=== PATIENT | female | born 1980 | race Caucasian/White ===

== ENCOUNTER 2016-07-23 08:55 | Emergency (ER) | payer BC ==
[~2016-07-23] VITALS: Wt 62.0 kg
[~2016-07-23 08:55] MED LIST: ALB.5NB20 IH; ALBU18HF IH; ALBU8.5H3 INH; AZIT250T6 PO; IBUP-1542 PO; PRED20TA PO; UDROBDM PO; ZOF8 PO
--- NOTE | 2016-07-23 10:25 | ERD ---
ER Documentation Chief Complaint Date/Time DATE: 07/23/16 TIME: 10:25 Chief Complaint SYNCOPAL EPISODE 2 DAYS AND TODAY WITH NO TRAUMA. NO NEURO DEF HPI Patient is a 35-year-old female with no medical problems who presents with passing out. She said that in 2014 she had an accident and then has had a headache since then. She feels dizzy. She passed out on Saturday and was by herself soon as she does not know how long she was out. She passed out again today and it lasted 2-3 minutes as her boyfriend was with her. She did have an MRI of her brain on June 19, 2016 which showed an arachnoid cyst but nothing otherwise. ROS All systems reviewed and are negative except as per history of present illness. Medications Home Meds Reported Medications Albuterol Sulfate* (Proair HFA*) 8.5 Gm Hfa.aer.ad, 2 PUFF INH Q4H Y for WHEEZING AND SOB, INH 03/22/14 Discontinued Reported Medications Albuterol Sulfate* (Albuterol Sulfate* Neb) 20 Ml Nebu, 20 ML IH PRN 09/11/12 Discontinued Scripts Guaifenesin-Dextromethorphan* (Robitussin* DM) 100MG/10MG/5ML Syrup, 10 ML PO Q6H Y for COUGH, #240 ML 0 Refills Prov:SHAHBAZ POMPA PA-C 04/07/15 Ibuprofen* (Ibuprofen*) 600 Mg Tablet, 600 MG PO Q6H Y for PAIN AND OR ELEVATED TEMP, #30 Prov:RANDY OMALLEY MD 10/25/14 Albuterol Sulfate* (Ventolin HFA*) 18 Gm Hfa.aer.ad, 2 PUFF IH Q4H Y for WHEEZING AND RESP DISTRESS for 7 Days, EA Prov:RANDY OMALLEY MD 10/25/14 Azithromycin* (Azithromycin*) 250 Mg Tablet, 250 MG PO . DIRECTED, #6 TAB TAKE 500 MG (2 TABS) THE FIRST DAY THEN 250 MG (1 TAB) DAYS 2-5 Prov:RANDY OMALLEY MD 10/25/14 Prednisone* (Prednisone*) 20 Mg Tab, 40 MG PO DAILY for 4 Days, TAB start 10/26 Prov:RANDY OMALLEY MD 10/25/14 Ondansetron Hcl* (Zofran* ODT) 8 mg -ODT Tab.disper, 8 MG PO Q6 Y for NAUSEA AND /OR VOMITING, #10 TAB Prov:RANDY OMALLEY MD 10/25/14 Allergies Allergies: Coded Allergies: Shellfish (Verified Allergy, Mild, RASH, 03/22/14) Uncoded Allergies: NONE (Allergy, Unknown, 03/22/14) PMhx/Soc History of Surgery: Yes ( , RIGHT SHOULDER) Anesthesia Reaction: No Hx Neurological Disorder: No Hx Respiratory Disorders: Yes (ASTHMA) Hx Cardiac Disorders: No Hx Psychiatric Problems: No Hx Miscellaneous Medical Probl: No Hx Alcohol Use: No Hx Substance Use: No Hx Tobacco Use: No Smoking Status: Never smoker FmHx Family History: No diabetes Physical Exam Vitals Vital Signs Date Time Temp Pulse Resp B/P Pulse Ox O2 Delivery O2 Flow Rate FiO2 07/23/16 10:44 97.8 78 18 137/95 98 Room Air 07/23/16 09:02 98.8 81 20 140/81 98 Physical Exam Const: No acute distress Head: Atraumatic Eyes: Normal Conjunctiva ENT: Normal External Ears, Nose and Mouth. Neck: Full range of motion..~ No meningismus. Resp: Clear to auscultation bilaterally Cardio: Regular rate and rhythm, no murmurs Abd: Soft, non tender, non distended. Normal bowel sounds Skin: No petechiae or rashes Back: No midline or flank tenderness Ext: No cyanosis, or edema Neur: Awake and alert Psych: Normal Mood and Affect Results 24 hrs Laboratory Tests Test 07/23/16 09:38 Bedside Glucose 92mg/dL [facility] EKG read by me: Rate/Rhythm: Regular rate and rhythm at a rate of 75 Intervals: Normal Impression: No evidence of ischemia or arrhythmia Accu-Chek is normal. Urine test is negative. Patient is a 35-year-old female with no medical problems who presents with syncope. Her EKG, Accu-Chek, and urine tests are negative. At this point I believe outpatient management is appropriate. I doubt or ectopic . I doubt significant arrhythmia such as ventricular fibrillation or ventricular tachycardia. I doubt hypo-or hyperglycemia. I believe outpatient management is appropriate but she will need to follow-up closely with her primary doctor within 24-48 hours. She can return sooner for any worsening symptoms. Departure Diagnosis: Primary Impression: Syncope Syncope type: unspecified Qualified Code: R55 - Syncope, unspecified syncope type Condition: Fair Patient Instructions: Causes of Syncope Referrals: SAMUEL HOWARD MD (PCP) Additional Instructions: Call your primary care doctor TOMORROW for an appointment during the next 1-2 days.See the doctor sooner or return here if your condition worsens before your appointment time. KANDICE CADET MD Jul 23, 2016 10:25
[2016-07-23 10:44] VITALS: BP 137/95; PULSE 78; RESP 18; TEMP 97.8
== END 2016-07-23 10:45 | disposition home or self-care (01) ==
LOC: E/R 08:55
DX: R55 Syncope and collapse (principal); J45.909 Unspecified asthma, uncomplicated
CPT/HCPCS: 82962; 93005; 99283

== ENCOUNTER 2016-10-26 08:55 | Emergency (ER) | payer BC ==
[~2016-10-26] VITALS: Ht 165.1 cm; Wt 78.0 kg
[~2016-10-26 08:55] MED LIST changes: -ALB.5NB20 IH; -ALBU18HF IH; -AZIT250T6 PO; -IBUP-1542 PO; -PRED20TA PO; -UDROBDM PO; -ZOF8 PO
[2016-10-26 08:57] VITALS: Ht 165.1 cm; Wt 78.0 kg
[2016-10-26] MEDS ORDERED: SOD CHLORIDE 0.9% 1,000 ML IV STA (09:17)
[2016-10-26] MEDS ORDERED: METOCLOPRAMIDE 10 MG INJ IV ONE (09:30)
[2016-10-26] MEDS ORDERED: DIPHENHYDRAMINE 50 MG INJ IV ONE (09:30)
[2016-10-26 09:40] LABS: ADD SCAN DIFF NO
[2016-10-26 09:43] LABS: BASOPHILS % 0.5 % (0.0-2.0); EOSINOPHILS # 0.2 10^3/ul (0.0-0.5); EOSINOPHILS % 1.8 % (0.0-7.0); HEMATOCRIT 41.3 % (37.0-47.0); LYMPHOCYTES # 2.2 10^3/ul (0.8-2.9); LYMPHOCYTES % 26.7 % (15.0-51.0); MEAN CORPUSCULAR HGB CONC 33.9 g/dl (32.0-37.0); MEAN CORPUSCULAR VOLUME 88.6 fl (82.0-101.0); MONOCYTE # 0.6 10^3/ul (0.3-0.9); MONOCYTES % 7.5 % (0.0-11.0); NEUTROPHIL # 5.2 10^3/ul (1.6-7.5); NEUTROPHILS % 63.3 % (39.0-77.0); PLATELET COUNT 287 10^3/UL (140-415); RED BLOOD COUNT 4.66 10^6/ul (4.20-5.40); RED CELL DISTRIBUTION WIDTH 13.2 % (11.5-14.5); WHITE BLOOD COUNT 8.2 10^3/ul (4.8-10.8)
[2016-10-26 10:05] LABS: CALCIUM 10.6 mg/dl (8.4-10.2); CREATININE 0.75 mg/dl (0.44-1.00); POTASSIUM 3.7 mmol/L (3.5-5.1)
--- NOTE | 2016-10-26 10:25 | RADRPT ---
PROCEDURE: CT Brain without contrast. CLINICAL INDICATION: Syncope. Headaches. TECHNIQUE: A CT of the brain was performed on a [employer] LightSpeed 64-slice CT scanner utilizing axial imaging from the skull base through the vertex without IV contrast. Multiplanar reformatted images were made. Images were reviewed on a PACS workstation. The CTDIvol is 46.46 mGy and the DLP is 630 .2 mGycm. One or the following dose reduction techniques were used: -Automated exposure control. -Adjustment of the mA and/or KV according to patient's size. -Use of iterative reconstruction technique. COMPARISON: None FINDINGS: There is a CSF density mass in the anterior left middle temporal fossa of measuring 6.1 x 2.4 x 3.6 cm. There is no intracranial hemorrhage, mass effect, or midline shift. No extra-axial hemorrhage is seen. The ventricles and sulci are normal in size and configuration. The density of the brain is normal, and the rucker white matter differentiation appears well-preserved. The visualized paranasal sinuses and osseous structures are grossly unremarkable. IMPRESSION: 1. CSF density left middle temporal fossa mass measuring 6.1 x 2.4 x 3.6 cm without associated mass effect. The appearance is typical for an arachnoid cyst. This could be confirmed with MRI as appro priate clinically. 2. No acute intracranial process identified. Note: A call report was made to Billy Brown on 10/26/2016 10:23:30 AM. RPTAT: [facility] Physician Rody Date Time Electronically viewed and signed by Physician Rody on 10/26/2016 10:24 COLLEEN/
[2016-10-26] MEDS ORDERED: MELO-109 PO (11:03)
[2016-10-26] MEDS ORDERED: LEVE-5 PO (11:03)
[2016-10-26] MEDS ORDERED: EXCED PO (11:28)
--- NOTE | 2016-10-26 11:45 | ERD ---
ER Documentation Chief Complaint Date/Time DATE: 10/26/16 TIME: 11:39 Chief Complaint SYNCOPAL EPISODE LAST NIGHT ,HEADACHE.HX OF SEIZURE HPI This 36-year-old female comes in for a headache. Headache is generalized on her whole head and is constant. Started gradually and then came on stronger. She states that she gets headaches every day for about a year. She has a history of a cyst in her head. She is on Keppra for seizures and takes Mobic for the headaches. She has good neurological follow-up. Last night she had an episode where she was sitting on the couch when she stood up felt very lightheaded and then fell back down to the couch. She has had no further syncopal episodes today. Her last seizure was approximately 1 month ago. ROS All systems reviewed and are negative except as per history of present illness. Medications Home Meds Active Scripts Acetaminophen/Aspirin/Caffeine* (Excedrin*) 1 Tab Tab, 1 TAB PO BID for HEADACHE , #10 TAB Prov:RAMONZACHARIAHMARTI DO 10/26/16 Reported Medications Meloxicam* (Meloxicam*) 7.5 Mg Tablet, 15 MG PO DAILY, #30 TAB 10/26/16 Levetiracetam* (Keppra*) 500 Mg Tablet, 500 MG PO BID, TAB 10/26/16 Albuterol Sulfate* (Proair HFA*) 8.5 Gm Hfa.aer.ad, 2 PUFF INH Q4H Y for WHEEZING AND SOB, INH 03/22/14 Allergies Allergies: Coded Allergies: Shellfish (Verified Allergy, Mild, RASH, 10/26/16) Uncoded Allergies: NONE (Allergy, Unknown, 03/22/14) PMhx/Soc History of Surgery: Yes ( , RIGHT SHOULDER) Anesthesia Reaction: No Hx Neurological Disorder: Yes (HALL) Hx Respiratory Disorders: Yes (ASTHMA) Hx Cardiac Disorders: No Hx Psychiatric Problems: No Hx Miscellaneous Medical Probl: Yes (BRAIN TUMOR) Hx Alcohol Use: No Hx Substance Use: No Hx Tobacco Use: No Smoking Status: Never smoker Physical Exam Vitals Vital Signs Date Time Temp Pulse Resp B/P Pulse Ox O2 Delivery O2 Flow Rate FiO2 10/26/16 11:30 59 16 104/64 99 Room Air 10/26/16 09:53 80 18 108/63 100 Room Air 10/26/16 08:57 98.6 80 18 141/75 100 Physical Exam Const: [] No distress Head: Atraumatic Eyes: Normal Conjunctiva, EOMI, PERRL ENT: Normal External Ears, Nose and Mouth. Neck: Full range of motion..~ No meningismus. Resp: Clear to auscultation bilaterally Cardio: Regular rate and rhythm, no murmurs Abd: Soft, non tender, non distended. Normal bowel sounds Skin: No petechiae or rashes Back: No midline or flank tenderness Ext: No cyanosis, or edema Neur: Awake and alert and oriented 3, cranial nerves II through XII intact, no cerebellar deficits, normal gait Psych: Normal Mood and Affect Result Diagram: 10/26/1692510/26/16925 Results 24 hrs Laboratory Tests Test 10/26/16 09:26 White Blood Count 8.210^3/ul Red Blood Count 4.6610^6/ul Hemoglobin 14.0g/dl Hematocrit 41.3% Mean Corpuscular Volume 88.6fl Mean Corpuscular Hemoglobin 30.0pg Mean Corpuscular Hemoglobin Concent 33.9g/dl Red Cell Distribution Width 13.2% Platelet Count 43576^3/UL Mean Platelet Volume 11.0fl Neutrophils % 63.3% Lymphocytes % 26.7% Monocytes % 7.5% Eosinophils % 1.8% Basophils % 0.5% Nucleated Red Blood Cells % 0.0/100WBC Neutrophils # 5.210^3/ul Lymphocytes # 2.210^3/ul Monocytes # 0.610^3/ul Eosinophils # 0.210^3/ul Basophils # 0.010^3/ul Nucleated Red Blood Cells # 0.010^3/ul Sodium Level 140mmol/L Potassium Level 3.7mmol/L Chloride Level 106mmol/L Carbon Dioxide Level 24mmol/L Anion Gap 14 Blood Urea Nitrogen 8mg/dl Creatinine 0.75mg/dl Glucose Level 108mg/dl Calcium Level 10.6mg/dl Current Medications Medications (Trade) Dose Ordered Sig/Adelia Route PRN Reason Start Time Stop Time Status Last Admin Dose Admin Sodium Chloride (NS) 1,000 ml @ 1,000 mls/hr Q1H STAT IV 10/26/16 09:17 10/26/16 10:16 DC 10/26/16 09:48 Metoclopramide HCl (Reglan) 10 mg ONCE ONCE IV 10/26/16 09:30 10/26/16 09:31 DC 10/26/16 09:50 Diphenhydramine HCl (Benadryl) 12.5 mg ONCE ONCE IV 10/26/16 09:30 10/26/16 09:31 DC 10/26/16 09:50 Procedures/MDM 36-year-old female with daily headaches with this headache no worse than the others. However she was concerned because of her lightheadedness last night and the fact that she fell back down on the couch. Sounds as though it was vasovagal combined with some lightheadedness that she may have had secondary to headache. Today she has no such symptoms and is stable on a residential monitor with a normal EKG. she has good neurological follow-up. Arachnoid cyst found on CAT scan is consistent with the patient said she had. Currently she is feeling better and headache is completely resolved after headache cocktail of IV fluid, Benadryl 12.5 IV and 10 mg of Reglan IV. She is currently asymptomatic. I am going to discharge her with instructions to follow-up with her neurologist and notify them of this episode. No signs of infection. Return precautions to the ER given. I have printed her CT head report for her and recommend radiological follow-up for tracking the cyst. CT head interpretation: I see no hemorrhage, no mass-effect, no skull fracture, arachnoid cyst is present. EKG interpretation: Normal sinus rhythm rate of 70, normal axis, no ST or T- wave changes concerning for acute ischemia, normal intervals. Normal EKG ekg monitor tech interpretation: Normal sinus rhythm without arrhythmia Departure Diagnosis: Primary Impression: Acute headache Additional Impressions: Arachnoid cyst Near syncope Condition: Stable Patient Instructions: Headache, Unspecified, Near Syncope, Unknown Additional Instructions: Call your primary care doctor TOMORROW for an appointment during the next 2-3 days.See the doctor sooner or return here if your condition worsens before your appointment time. MARTI NAVARRO DO Oct 26, 2016 11:45
[2016-10-26 12:25] VITALS: BP 123/86; PULSE 69; RESP 7
== END 2016-10-26 12:26 | disposition home or self-care (01) ==
LOC: E/R 08:55
DX: R51 Headache (principal); G93.0 Cerebral cysts; J45.909 Unspecified asthma, uncomplicated
CPT/HCPCS: 70450; 80048; 85025; J1200; J2765; J7030; 36415; 93005; 96361; 96374; 96375